=== PATIENT | male | born 1945 | race Caucasian/White ===

== ENCOUNTER → 2019-01-15 | Outpatient (CLI) | payer MEDICARE | LOC: COL.RAD 14:58 | DX: Z01.812 Encounter for preprocedural laboratory examination (principal); J18.1 Lobar pneumonia, unspecified organism; J98.6 Disorders of diaphragm; J98.11 Atelectasis; I77.810 Thoracic aortic ectasia | CPT/HCPCS: Q9967 ==

== ENCOUNTER 2019-06-29 08:56 | Emergency (ER) | payer MEDICARE ==
[~2019-06-29] VITALS: Ht 170.2 cm; Wt 65.9 kg
[2019-06-29 09:00] VITALS: TEMP 98.3
[2019-06-29] MEDS ORDERED: SYNTHROID0.112 MG/T PO (09:22)
[2019-06-29 09:53] LABS: BASO # 0.1 (0.0-0.2); GRAN # 3.8 (1.4-6.5); GRAN % 76.4 % (42.2-75.2); HEMATOCRIT 40.7 % (42.0-52.0); HEMOGLOBIN 13.4 g/dl (13.5-18.0); LYMPH # 0.7 (1.2-3.4); LYMPH % 13.1 % (20.0-51.0); MEAN CELL VOLUME 92 fl (80.0-100.0); MEAN CORPUSCULAR HEMOGLOBIN 30 pg (27.0-31.0); MEAN CORPUSCULAR HGB CONC 33 g/dl (33.0-37.0); MEAN PLATELET VOLUME 11.7 fl (7.4-10.4); MONO # 0.5 (0.1-0.6); MONO % 9.1 % (1.7-9.3); PLATELET COUNT 56 K/mm3 (130-400); RED BLOOD COUNT 4.44 M/mm3 (4.20-5.60); REDCELL DISTRIBUTION WIDTH-CV 13.6 % (11.5-14.5)
[2019-06-29 10:54] VITALS: BP 137/95; PULSE 77
== END 2019-06-29 10:55 | disposition home or self-care (01) ==
LOC: COL.ER 08:56
PROVIDERS: Emergency Medicine
DX: R04.0 Epistaxis (principal); D69.6 Thrombocytopenia, unspecified; E03.9 Hypothyroidism, unspecified

== ENCOUNTER → 2019-06-30 | Outpatient (CLI) | payer MEDICARE ==
[~2019-06-30] MED LIST: SYNTHROID0.112 MG/T PO
== END ==
LOC: COL.VAS 08:54
DX: I51.7 Cardiomegaly (principal); I31.3 Pericardial effusion (noninflammatory)

== ENCOUNTER → 2019-08-25 | Outpatient (CLI) | payer MEDICARE | LOC: COL.VAS 08:11 | DX: I31.3 Pericardial effusion (noninflammatory) (principal) ==

== ENCOUNTER 2020-01-18 01:13 | Emergency (ER) | payer MEDICARE ==
[~2020-01-18] VITALS: Ht 170.2 cm; Wt 65.9 kg
[2020-01-18 02:20] LABS: BASO % 0.3 % (0.0-2.0); GRAN % 84.5 % (42.2-75.2); LYMPH # 0.6 (1.2-3.4); LYMPH % 5.8 % (20.0-51.0); MEAN CELL VOLUME 90 fl (80.0-100.0); MEAN CORPUSCULAR HEMOGLOBIN 29 pg (27.0-31.0); MEAN CORPUSCULAR HGB CONC 33 g/dl (33.0-37.0); MONO # 0.9 (0.1-0.6); MONO % 9.1 % (1.7-9.3); PLATELET COUNT 87 K/mm3 (130-400); REDCELL DISTRIBUTION WIDTH-CV 13.3 % (11.5-14.5)
[2020-01-18 02:23] LABS: HEMATOCRIT 36.8 % (42.0-52.0)
[2020-01-18 02:30] LABS: ALANINE AMINOTRANSFERASE 12 U/L (4-49); ALBUMIN 3.3 gm/dL (3.5-5.0); ALKALINE PHOSPHATASE 64 U/L (50-136); ANION GAP 6 mmol/L (7-16); AST,SGOT 18 U/L (15-37); BILIRUBIN,TOTAL 2.9 mg/dL (0.0-1.0); BLOOD UREA NITROGEN 12 mg/dL (9-20); CARBON DIOXIDE 27 mmol/L (22-30); CHLORIDE 99 mmol/L (98-107); CREATININE, serum 0.81 (0.66-1.25); GLUCOSE 91 mg/dL (74-106); MAGNESIUM 1.9 mg/dL (1.6-2.3); SODIUM 131 mmol/L (137-145); TOTAL PROTEIN 6.3 gm/dL (6.4-8.2)
[2020-01-18 02:35] LABS: C-REACTIVE PROTEIN > 9.0 mg/dL (0.0-0.9)
[2020-01-18 03:08] LABS: COLLECTION METHOD CLEAN CATCH
[2020-01-18 03:19] LABS: MUCOUS Present /lpf; PH 7 (5-8); SQUAMOUS EPITHELIAL 0-2 /hpf; URINE APPEARANCE Cloudy; URINE BACTERIA Rare /hpf; URINE BILIRUBIN Negative (NEGATIVE); URINE BLOOD 3+ (NEGATIVE); URINE COLOR Yellow; URINE GLUCOSE Negative (NEGATIVE); URINE KETONE Negative (NEGATIVE); URINE LEUKOCYTE ESTERASE 3+ (NEGATIVE); URINE NITRATE Negative (NEGATIVE); URINE PROTEIN(semi-quant) 2+ (NEGATIVE); URINE RBC >50 /hpf; URINE UROBILINOGEN Negative (NEGATIVE)
[2020-01-18] MEDS ORDERED: CEFTIN500 MG PO (04:12)
[2020-01-18 04:45] VITALS: BP 132/70; PULSE 78; TEMP 98
== END 2020-01-18 04:47 | disposition home or self-care (01) ==
LOC: COL.ER 01:13
PROVIDERS: Emergency Medicine
DX: N30.91 Cystitis, unspecified with hematuria (principal); K59.00 Constipation, unspecified; D69.6 Thrombocytopenia, unspecified; E03.9 Hypothyroidism, unspecified; Z79.890 Hormone replacement therapy; Z88.1 Allergy status to other antibiotic agents
CPT/HCPCS: J0696; J7030

== ENCOUNTER 2021-02-08 09:29 | Emergency (ER) | payer MEDICARE ==
[~2021-02-08] VITALS: Ht 170.2 cm; Wt 65.0 kg
[~2021-02-08 09:29] MED LIST changes: +CEFTIN500 MG PO
[2021-02-08 09:59] VITALS: TEMP 97.1
[2021-02-08 11:20] LABS: ALANINE AMINOTRANSFERASE 14 U/L (4-49); ALKALINE PHOSPHATASE 90 U/L (50-136); ANION GAP 7 mmol/L (7-16); AST,SGOT 32 U/L (15-37); BILIRUBIN,TOTAL 1.3 mg/dL (0.0-1.0); BLOOD UREA NITROGEN 7 mg/dL (9-20); CALCIUM 9.6 mg/dL (8.4-10.2); CARBON DIOXIDE 28 mmol/L (22-30); CHLORIDE 98 mmol/L (98-107); CREATININE, serum 0.72 (0.66-1.25); GLUCOSE 89 mg/dL (74-106); POTASSIUM 5.2 mmol/L (3.4-5.0); SODIUM 132 mmol/L (137-145); TOTAL PROTEIN 7.4 gm/dL (6.4-8.2)
[2021-02-08 11:32] LABS: TROPONIN-I < 0.012 ng/mL (0.000-0.035)
[2021-02-08 11:33] LABS: BASO # 0.1 (0.0-0.2); GRAN # 3.8 (1.4-6.5); GRAN % 72.1 % (42.2-75.2); HEMATOCRIT 42.2 % (42.0-52.0); HEMOGLOBIN 13.4 g/dl (13.5-18.0); LYMPH # 0.8 (1.2-3.4); LYMPH % 14.9 % (20.0-51.0); MEAN CELL VOLUME 92 fl (80.0-100.0); MEAN CORPUSCULAR HEMOGLOBIN 29 pg (27.0-31.0); MEAN CORPUSCULAR HGB CONC 32 g/dl (33.0-37.0); MEAN PLATELET VOLUME 10.5 fl (7.4-10.4); MONO # 0.6 (0.1-0.6); MONO % 11.8 % (1.7-9.3); PLATELET COUNT 80 K/mm3 (130-400); RED BLOOD COUNT 4.57 M/mm3 (4.20-5.60); REDCELL DISTRIBUTION WIDTH-CV 14.6 % (11.5-14.5)
[2021-02-08] MEDS ORDERED: NYSTATIN OR100 MU/ML PO (13:00)
[2021-02-08 13:20] VITALS: BP 130/79; PULSE 71
== END 2021-02-08 13:20 | disposition home or self-care (01) ==
LOC: COL.ER 09:29
PROVIDERS: Emergency Medicine
DX: J04.0 Acute laryngitis (principal); B34.9 Viral infection, unspecified; B37.9 Candidiasis, unspecified; Z20.822 Contact with and (suspected) exposure to COVID-19

== ENCOUNTER 2021-04-21 10:02 | Day surgery (SDC) | payer MEDICARE ==
[~2021-04-21] VITALS: Ht 170.2 cm; Wt 64.4 kg
[~2021-04-21 10:02] MED LIST changes: +NYSTATIN OR100 MU/ML PO
[2021-04-21] MEDS ORDERED: PRILOSEC 20MG20 MG PO (10:15)
[2021-04-21 10:29] VITALS: BP 134/88; PULSE 53; TEMP 96.6
[2021-04-21 11:35] VITALS: BP 111/75; PULSE 64; TEMP 98.2
--- NOTE | 2021-04-21 11:35 | NUR ---
PATIENT BROUGHT BACK TO [facility] [address], AMBULATED WITHOUT DIFFICULTY. PLACED ON MONITORS, VITAL SIGNS STABLE. IV INFUSING. PADDY AT BEDSIDE FOR REPORT. PATIENT STATES HE WOULD LIKE WATER. FRIEND TO DRIVE PATIENT HOME. DENIES PAIN OR NAUSEA. CALL MORALEZ WITHIN REACH. WILL CONTINUE TO MONITOR.
[2021-04-21 11:50] VITALS: BP 125/79; PULSE 57
--- NOTE | 2021-04-21 11:50 | NUR ---
PATIENT TOLERATING WATER WITHOUT DIFFICULTY. VITAL SIGNS STABLE. WILL MONITOR.
[2021-04-21 12:05] VITALS: BP 122/89; PULSE 56
--- NOTE | 2021-04-21 12:05 | NUR ---
DR. JONES AT BEDSIDE TO DISCUSS RESULTS WITH PATIENT. OFFICE TO CALL PATIENT TO SET UP IMAGING. PATIENT STATES HE FEELS READY TO GO HOME AT THIS TIME. TOLERATING WATER. VITAL SIGNS STABLE. FRIEND IN PARKING LOT TO PICK PATIENT UP. 1215- IV REMOVED. PATIENT TO GET DRESSED AT THIS TIME. 1220- PATIENT BROUGHT DOWN TO LOBBY VIA WHEEL CHAIR. ALL BELONGINGS IN HAND. FRIEND AT FRONT DOOR TO DRIVE PATIENT HOME.
== END 2021-04-21 12:20 | disposition home or self-care (01) ==
LOC: SDCO 10:02
DX: K21.00 Gastro-esophageal reflux disease with esophagitis, without bleeding (principal); K29.50 Unspecified chronic gastritis without bleeding; K22.4 Dyskinesia of esophagus; E11.9 Type 2 diabetes mellitus without complications; E03.9 Hypothyroidism, unspecified; D69.6 Thrombocytopenia, unspecified; I31.3 Pericardial effusion (noninflammatory); I77.810 Thoracic aortic ectasia; Z79.899 Other long term (current) drug therapy; Z79.890 Hormone replacement therapy
CPT/HCPCS: J2704; J7120

== ENCOUNTER 2021-09-22 10:43 | Day surgery (SDC) | payer MEDICARE ==
[~2021-09-22] VITALS: Ht 170.2 cm; Wt 66.0 kg
[~2021-09-22 10:43] MED LIST changes: +PRILOSEC 20MG20 MG PO
[2021-09-22 11:15] VITALS: BP 129/82; PULSE 62; TEMP 98.2
[2021-09-22 12:50] VITALS: BP 109/78; PULSE 68; TEMP 97.8
--- NOTE | 2021-09-22 12:50 | NUR ---
Pt arrived from endo suite, drowsy but oriented. Vitals obtained. Verbal report obtained. Pt has his personal "coconut water" to drink, and requested apple sauce without added sugar. Pt verbalized understanding that applesauce naturally has some sugar in it. Pt denies nausea. Will continue to monitor per intervals. Call singh is within reach on bedside table.
[2021-09-22 13:05] VITALS: BP 113/87; PULSE 63
--- NOTE | 2021-09-22 13:05 | NUR ---
Vitals obtained. Pt continues to deny nausea. States ride should be contacted when pt is ready to leave. Call singh remains within reach.
[2021-09-22 13:20] VITALS: BP 124/85; PULSE 63
--- NOTE | 2021-09-22 13:20 | NUR ---
Vitals obtained. DC instructions and educational material was reviewed with the patient, who verbalized understanding and signed the related paperwork. Pt denied having questions or concerns. IV discontinued. Catheter tip intact. Pressure bandage applied. No swelling or redness noted. Pt denied needing assistance changing into personal clothes. Ride was contacted by RN per patient request.
--- NOTE | 2021-09-22 13:33 | NUR ---
Pt is waiting in his bay for ride. Call singh remains within reach if needed.
--- NOTE | 2021-09-22 13:47 | NUR ---
Pt was dismissed from [facility] via wheelchair to the patient entence by JOANNE Lewis. Pt has DC packet in hand and was transferred into the care of Marli, who is present to drive.
== END 2021-09-22 13:40 | disposition home or self-care (01) ==
LOC: SDCO 10:43
DX: Z12.11 Encounter for screening for malignant neoplasm of colon (principal); Z86.010 Personal history of colon polyps
CPT/HCPCS: J2704; J7030

== ENCOUNTER 2021-11-26 19:46 | Emergency (ER) | payer MEDICARE ==
[~2021-11-26] VITALS: Ht 170.2 cm; Wt 63.6 kg
[2021-11-26 19:50] VITALS: TEMP 97.4
[2021-11-26] MEDS ORDERED: MYCELEX10 MG/TAB MM (20:15)
[2021-11-26 21:00] VITALS: BP 144/88; PULSE 16
== END 2021-11-26 21:00 | disposition home or self-care (01) ==
LOC: COL.ER 19:46
DX: B37.9 Candidiasis, unspecified (principal); E07.9 Disorder of thyroid, unspecified; K21.9 Gastro-esophageal reflux disease without esophagitis; Z28.310 Unvaccinated for COVID-19; Z79.899 Other long term (current) drug therapy